=== PATIENT | female | born 1940 | race Two or more races ===

== ENCOUNTER → 2018-11-14 | Day surgery (SDC) | payer OTHER ==
[2018-11-08 10:31] LABS: Basophils # (auto) 0 uL; Basophils % (auto) 0.6 % (0.0-2.0); Eosinophils # (auto) 0.1 uL; Eosinophils % (auto) 1.6 % (0.0-7.0); Hematocrit 40.4 % (36.0-46.0); Hemoglobin 13.4 g/dL (12.2-16.2); Lymphocytes # (auto) 1.4 uL; Lymphocytes % (auto) 31.8 % (10.0-50.0); Mean Corpuscular Hemoglobin 27.6 pg (28.0-32.0); Mean Corpuscular Hgb Conc. 33.3 g/dL (32.0-36.0); Mean Corpuscular Volume 83.1 fL (80.0-100.0); Monocytes # (auto) 0.4 uL; Monocytes % (auto) 9.7 % (0.0-12.0); Neutrophils # (auto) 2.5 uL; Neutrophils % (auto) 56.3 % (37.0-80.0); Nucleated Red Blood Cells % 0.1 %; Platelet Count (auto) 155 10^3/uL (140-450); Red Blood Cells 4.86 10^6/uL (4.0-5.20); Red Cell Distribution Width 15.9 % (11.8-14.3); White Blood Cell 4.5 10^3/uL (4.4-10.8)
[2018-11-08 10:42] LABS: Urine Bacteria NONE SEEN /hpf (None Seen); Urine Blood Negative /uL (Negative); Urine Mucus FEW (None Seen); Urine Specific Gravity 1.024 (1.001-1.035); Urine WBC 1 /hpf (0 - 5)
[2018-11-08 10:54] LABS: INR 0.97 (0.9-1.15); Prothrombin Time 10.4 sec (9.27-12.13)
[2018-11-08 13:06] LABS: Albumin 4.2 g/dL (3.4-5.0); Potassium 3.7 mmol/L (3.5-5.1)
[2018-11-08 13:20] LABS: BUN/Creatinine Ratio 24.1; Bilirubin, Total 0.4 mg/dL (0.2-1.0); Calcium 8.6 mg/dL (8.5-10.1); Total Protein 7.8 g/dL (6.4-8.2)
[~2018-11-14] VITALS: Ht 167.6 cm; Wt 76.7 kg
[~2018-11-14] MED LIST: ALLO300T2 PO; AMLO5TAB13 PO; ASPI81TA27 PO; BUPIVACAINE HCL 0.25% P/F 10 ML VIAL ONE; CARV3.1240 PO; CHLORHEXIDINE 4% TOPICAL soln 4or8OZ TOP ONE; CONJ ESTROGENS 0.625MG/GM VAG CRM 30GM PV ONE; DEXAMETHASONE SOD PHOS 10MG/1ML VIAL INJ ONE; HYDROmorphone HCL 2 MG/ML VL IV PRN; IBUP800T24 PO; KETOROLAC TROMETH 30 MG/ML 1ML VIAL IV ONE; LABETALOL HCL 5 MG/ML 4ML SYRINGE IV PRN; LEVO88TA4 PO; LIDOCAINE W/ EPINEPHRINE 1% 20ML VIAL ONE; LOP2C PO; MEPERIDINE HCL (50 MG/ML) 1 ML VIAL ONE; METOCLOPRAMIDE HCL 5MG/ml INJ 2ml VIAL IV ONE; MIDAZOLAM HCL 1MG/1ML-2 ML VIAL IV PRN; MIDAZOLAM HCL 1MG/1ML-2 ML VIAL ONE; MORPHINE SULFATE 4 MG/ML SYR/VIAL IV ONE; MORPHINE SULFATE 4 MG/ML SYR/VIAL IV PRN; ONDANSETRON HCL 4 MG/2 ML VIAL IV ONE; ONDANSETRON HCL 4 MG/2 ML VIAL IV PRN; ONDANSETRON HCL 4 MG/2 ML VIAL ONE; PROPOFOL 10 MG/ML 20 ML IV ONE; RANI-185 PO; ROSU20TA14 PO; VASOPRESSIN 20 UNIT/ML ONE; ceFAZolin 1GM VL ONE; ePHEDrine SULFATE 50 MG/ML AMP IV PRN; fentaNYL CITRATE 100 MCG/2 ML VL ONE
[2018-11-14 20:28] VITALS: BP 140/71
== END | disposition home or self-care (01) ==
LOC: SUR 15:04
PROVIDERS: ATTEND Obstetrics & Gynecology
DX: N81.6 Rectocele (principal); K21.9 Gastro-esophageal reflux disease without esophagitis; I10 Essential (primary) hypertension; E89.0 Postprocedural hypothyroidism; I25.119 Atherosclerotic heart disease of native coronary artery with unspecified angina pectoris; Z90.13 Acquired absence of bilateral breasts and nipples; Z88.5 Allergy status to narcotic agent; Z91.040 Latex allergy status
CPT/HCPCS: 36415; 57268; 80053; 81001; 85025; 85610; 85730; 87086; 88305; C1781; J0690; J1100; J2175; J2250; J2405; J2704; J3010; J3490

== ENCOUNTER 2023-04-09 16:04 | Inpatient (IN) | payer OTHER, MEDICAID ==
[~2023-04-09] VITALS: Ht 167.6 cm; Wt 82.7 kg
[~2023-04-09 16:04] MED LIST changes: +AMLO1TAB22 PO; -AMLO5TAB13 PO; +ASPI-543 PO; -ASPI81TA27 PO; -BUPIVACAINE HCL 0.25% P/F 10 ML VIAL ONE; -CHLORHEXIDINE 4% TOPICAL soln 4or8OZ TOP ONE; -CONJ ESTROGENS 0.625MG/GM VAG CRM 30GM PV ONE; -DEXAMETHASONE SOD PHOS 10MG/1ML VIAL INJ ONE; -HYDROmorphone HCL 2 MG/ML VL IV PRN; +IBUP-1456 PO; -IBUP800T24 PO; -KETOROLAC TROMETH 30 MG/ML 1ML VIAL IV ONE; -LABETALOL HCL 5 MG/ML 4ML SYRINGE IV PRN; -LIDOCAINE W/ EPINEPHRINE 1% 20ML VIAL ONE; -MEPERIDINE HCL (50 MG/ML) 1 ML VIAL ONE; -METOCLOPRAMIDE HCL 5MG/ml INJ 2ml VIAL IV ONE; -MIDAZOLAM HCL 1MG/1ML-2 ML VIAL IV PRN; -MIDAZOLAM HCL 1MG/1ML-2 ML VIAL ONE; -MORPHINE SULFATE 4 MG/ML SYR/VIAL IV ONE; -MORPHINE SULFATE 4 MG/ML SYR/VIAL IV PRN; -ONDANSETRON HCL 4 MG/2 ML VIAL IV ONE; -ONDANSETRON HCL 4 MG/2 ML VIAL IV PRN; -ONDANSETRON HCL 4 MG/2 ML VIAL ONE; -PROPOFOL 10 MG/ML 20 ML IV ONE; -VASOPRESSIN 20 UNIT/ML ONE; -ceFAZolin 1GM VL ONE; -ePHEDrine SULFATE 50 MG/ML AMP IV PRN; -fentaNYL CITRATE 100 MCG/2 ML VL ONE
[2023-04-09 16:34] LABS: Basophils # (auto) 0 10 ^3/uL (0-0.2); Basophils % (auto) 0.7 % (0.0-2.0); Eosinophils # (auto) 0.1 10 ^3/uL (0-0.8); Eosinophils % (auto) 1.7 % (0.0-7.0); Hematocrit 44.4 % (36.0-46.0); Lymphocytes # (auto) 1.7 10 ^3/uL (0.4-5.4); Lymphocytes % (auto) 25.8 % (10.0-50.0); Mean Corpuscular Hemoglobin 26.8 pg (28.0-32.0); Mean Corpuscular Hgb Conc. 31.6 g/dL (32.0-36.0); Mean Corpuscular Volume 84.9 fL (80.0-100.0); Monocytes # (auto) 0.5 10 ^3/uL (0-1.3); Monocytes % (auto) 7.3 % (0.0-12.0); Neutrophils # (auto) 4.1 10 ^3/uL (1.6-8.6); Neutrophils % (auto) 64.5 % (37.0-80.0); Nucleated Red Blood Cells % 0.1 %; Red Blood Cells 5.23 10^6/uL (4.0-5.20); Red Cell Distribution Width 16.8 % (11.8-14.3); White Blood Cell 6.4 10^3/uL (4.4-10.8)
[2023-04-09 16:53] LABS: Urine Bacteria NONE SEEN /hpf (None Seen); Urine Blood Negative /uL (Negative); Urine Specific Gravity 1.009 (1.001-1.035); Urine WBC 1 /hpf (0 - 5)
[2023-04-09 17:00] LABS: Potassium 4.1 mmol/L (3.5-5.1)
[2023-04-09 17:04] LABS: BUN/Creatinine Ratio 17.1 (10.0-20.0); Bilirubin, Total 0.6 mg/dL (0.2-1.0); Total Protein 8.3 g/dL (6.4-8.2)
[2023-04-09] MEDS ORDERED: cloNIDine HCL 0.1 MG TAB PO ONE ×2 (17:30→18:15)
[2023-04-10] VITALS (7 sets, daily range): BP systolic 131–179; BP diastolic 60–80
[2023-04-10] MEDS ORDERED: cloNIDine HCL 0.1 MG TAB PO PRN (01:30)
[2023-04-10] MEDS ORDERED: MORPHINE SULFATE INJ 2 MG/ml SYRG IV PRN (01:30)
[2023-04-10] MEDS ORDERED: ONDANSETRON HCL 4 MG/2 ML VIAL IV PRN (01:30)
[2023-04-10] MEDS ORDERED: ENOXAPARIN SOD 100 MG/1 ML SYRINGE SC ONE (01:30)
[2023-04-10] MEDS ORDERED: ACETAMINOPHEN 325 MG TAB PO PRN (01:30)
[2023-04-10] MEDS ORDERED: NITROGLYCERIN 0.4 MG SL TAB SL PRN (01:30)
[2023-04-10 02:45] LABS: INR 1.09 (0.9-1.15); Partial Thromboplastin Time 31.6 SEC (24.5-34.5)
[2023-04-10] MEDS: LEVOTHYROXINE SODIUM 88 MCG TAB PO SCH (06:34)
[2023-04-10] MEDS: ASPirin 81 mg TAB PO SCH (10:00)
[2023-04-10] MEDS ORDERED: PANTOPRAZOLE 40 MG TAB PO SCH (10:00)
[2023-04-10] MEDS: amLODIPine BESYLATE 5 MG TAB PO SCH (10:22)
[2023-04-10] MEDS: FUROSEMIDE 20 MG TAB PO SCH (10:23)
[2023-04-10] MEDS ORDERED: fentaNYL CITRATE 100 MCG/2 ML VL ONE (11:44)
[2023-04-10] MEDS ORDERED: ANGIOMAX 250 MG VIAL IV ONE ×2 (11:44→13:01)
[2023-04-10] MEDS ORDERED: HEPARIN SODIUM (PORCINE) 5000 UNITS/ML 1ML VIAL ONE (11:45)
[2023-04-10] MEDS ORDERED: MIDAZOLAM HCL 2MG/2ML 2ml VIAL (1mg/ml) ONE (11:45)
[2023-04-10] MEDS ORDERED: SODIUM CHL 0.9% 0 ML ONE (11:45)
[2023-04-10] MEDS ORDERED: VERAPAMIL 2.5MG/ML INJ 2ML VIAL IV ONE (11:46)
[2023-04-10] MEDS ORDERED: FAMOTIDINE (10MG/ML) 2ML VL IV ONE (12:16)
[2023-04-10] MEDS ORDERED: diphenhdrAMINE HCL 50 MG/1 ML VL ONE (12:16)
[2023-04-10] MEDS ORDERED: methylPREDNISolone SOD SUCC 125 MG/2 ML VL ONE (12:17)
[2023-04-10] MEDS ORDERED: IODIXANOL 320MG/ML 100ML BTL IV ONE (12:41)
[2023-04-10] MEDS ORDERED: ENOXAPARIN SOD 40 MG/0.4 ML SYRINGE SC SCH (22:00)
[2023-04-10] MEDS ORDERED: ATORVASTATIN 20 MG TAB PO SCH (22:00)
[2023-04-11 01:19] VITALS: BP 127/52
[2023-04-11 05:00] VITALS: BP 136/74
[2023-04-11 06:39] LABS: Potassium 3.8 mmol/L (3.5-5.1)
[2023-04-11 06:45] LABS: Albumin 3.9 g/dL (3.4-5.0); BUN/Creatinine Ratio 24.2 (10.0-20.0); Bilirubin, Total 0.5 mg/dL (0.2-1.0); Calcium 9.1 mg/dL (8.5-10.1); Total Protein 8.4 g/dL (6.4-8.2)
[2023-04-11] MEDS: LEVOTHYROXINE SODIUM 88 MCG TAB PO SCH (06:48)
[2023-04-11 06:52] LABS: Basophils # (auto) 0.1 10 ^3/uL (0-0.2); Basophils % (auto) 0.3 % (0.0-2.0); Eosinophils # (auto) 0 10 ^3/uL (0-0.8); Eosinophils % (auto) 0.1 % (0.0-7.0); Hematocrit 43.2 % (36.0-46.0); Hemoglobin 13.8 g/dL (12.2-16.2); Lymphocytes % (auto) 6.2 % (10.0-50.0); Mean Corpuscular Hemoglobin 27.1 pg (28.0-32.0); Mean Corpuscular Hgb Conc. 31.9 g/dL (32.0-36.0); Monocytes # (auto) 0.4 10 ^3/uL (0-1.3); Monocytes % (auto) 2.3 % (0.0-12.0); Neutrophils # (auto) 14.9 10 ^3/uL (1.6-8.6); Neutrophils % (auto) 91.1 % (37.0-80.0); Nucleated Red Blood Cells % 0.1 %; Red Blood Cells 5.08 10^6/uL (4.0-5.20); Red Cell Distribution Width 16.9 % (11.8-14.3); White Blood Cell 16.3 10^3/uL (4.4-10.8)
[2023-04-11 08:30] VITALS: BP 122/54
[2023-04-11] MEDS: FUROSEMIDE 20 MG TAB PO SCH (09:16)
[2023-04-11] MEDS: amLODIPine BESYLATE 5 MG TAB PO SCH (09:16)
[2023-04-11] MEDS: ASPirin 81 mg TAB PO SCH (09:16)
[2023-04-11 12:30] VITALS: BP 137/54
[2023-04-11 16:14] VITALS: BP 122/54
[2023-04-11 16:34] VITALS: BP 156/59
== END 2023-04-11 17:29 | disposition home or self-care (01) | DRG 282 ==
LOC: ER 16:04 → TELE 04-10 01:23 → TELE-WESTW 04-10 14:49
PROVIDERS: ADMIT Nurse Practitioner; ATTEND Internal Medicine
PROC: 4A023N7 Measurement of Cardiac Sampling and Pressure, Left Heart, Percutaneous Approach (ICD-10-PCS; principal; 2023-04-10)
PROC: B211YZZ Fluoroscopy of Multiple Coronary Arteries using Other Contrast (ICD-10-PCS; 2023-04-10)
PROC: B215YZZ Fluoroscopy of Left Heart using Other Contrast (ICD-10-PCS; 2023-04-10)
DX: I21.4 Non-ST elevation (NSTEMI) myocardial infarction (principal); I10 Essential (primary) hypertension; E03.9 Hypothyroidism, unspecified; I25.10 Atherosclerotic heart disease of native coronary artery without angina pectoris; E78.5 Hyperlipidemia, unspecified; Z88.8 Allergy status to other drugs, medicaments and biological substances; Z91.040 Latex allergy status; Z95.2 Presence of prosthetic heart valve; Z85.3 Personal history of malignant neoplasm of breast; Z82.49 Family history of ischemic heart disease and other diseases of the circulatory system
CPT/HCPCS: 36415; 71250; 80053; 81001; 83880; 84484; 85025; 85610; 85730; 93005; 93306; 93458; 99152; G0378; J2250; J3490; Q9967